=== PATIENT | female | born 1975 | race American Indian/Alaskan Native ===

== ENCOUNTER 2017-03-02 00:29 | Emergency (ER) | payer OTHER ==
[2017-03-02 02:31] LABS: Basophils % (Auto) 0.2 % (0.0-1.8); Eosinophils % (Auto) 0.1 % (0.0-4.3); Hematocrit 35.2 % (30.3-42.9); Hemoglobin 11.7 gm/dl (10.1-14.3); Lymphocytes # (Auto) 0.8 K/mm3 (1.2-5.4); Lymphocytes % (Auto) 13.5 % (13.4-35.0); Mean Corpuscular HGB Conc 33 % (30-34); Mean Corpuscular Hemoglobin 28 pg (28-32); Mean Corpuscular Volume 83 fl (79-97); Monocytes # (Auto) 0.7 K/mm3 (0.0-0.8); Monocytes % (Auto) 11.9 % (0.0-7.3); Red Blood Count 4.24 M/mm3 (3.65-5.03); Red Cell Distribution Width 14.2 % (13.2-15.2)
[2017-03-02 02:33] LABS: Platelet Count 67 K/mm3 (140-440)
[2017-03-02 02:42] LABS: Alanine Aminotransferase 125 units/L (7-56); Albumin 3.2 g/dL (3.9-5); BUN/Creatinine Ratio 18; Blood Urea Nitrogen 9 mg/dL (7-17); Calcium 8.4 mg/dL (8.4-10.2); Hemolysis Index 14
[2017-03-02] MEDS ORDERED: TYLENOL PO ONE ×2 (04:12→19:40)
[2017-03-02] MEDS ORDERED: TYLENOL ONE (04:15)
[2017-03-02 04:47] LABS: Bacteria,Urine 1+ /HPF (Negative); Bilirubin,Urine NEG (Negative); Blood,Urine SM (Negative); Color,Urine Straw (Yellow); Mucus,Urine FEW /HPF; Nitrite,Urine NEG (Negative); Protein,Urine <15 mg/dL mg/dL (Negative); Urobilinogen,Urine < 2.0 mg/dL (<2.0); WBC,Urine < 1.0 /HPF (0.0-6.0)
[2017-03-02 04:49] LABS: HCG Qualitative,Urine Negative (Negative)
--- NOTE | 2017-03-02 06:04 | Cat Scan Report ---
FINAL REPORT EXAM: CT HEAD/BRAIN WO CON HISTORY: AMS x2 HRS PER PT TECHNIQUE: CT imaging acquired through the head without intravenous contrast. Transaxial reformations are provided. PRIORS: None. FINDINGS: The ventricles, cisterns and sulci are within normal limits. No intraparenchymal or extra-axial mass, hemorrhage, or mass effect. Leon and white-matter differentiation is within normal limits. Normal spherical shape of the globes. Paranasal sinuses and mastoid air cells are clear. No skull or facial fracture visualized. IMPRESSION: No acute intracranial abnormality. Consider follow-up MRI as warranted.
[2017-03-02 12:57] LABS: Amphetamine Screen,Urine PRESUMPTIVE NEGATIVE; Benzodiazepines Screen,Urine PRESUMPTIVE NEGATIVE; Cannabinoid Screen,Urine PRESUMPTIVE NEGATIVE; Cocaine Screen,Urine PRESUMPTIVE NEGATIVE; Methadone Screen,Urine PRESUMPTIVE NEGATIVE; Opiate Screen,Urine PRESUMPTIVE NEGATIVE
--- NOTE | 2017-03-02 19:39 | Emergency Department Report ---
ED Neuro Deficit HPI - General Chief Complaint: Neuro Symptoms/Deficit Stated Complaint: FEVER,HEADACHE,CHILL Time Seen by Provider: 03/02/17 17:27 Source: patient Mode of arrival: Ambulatory Limitations: No Limitations - History of Present Illness Initial Comments: 41 YO FEMALE WITH FEVER,CHILLS,FRONTAL HEADACHE THAT BEGAN 5 DAYS AGO. SHE ASLO BEGAN HAVING NECK PAIN 4 DAYS AND DIARRHEA WITH NAUSEA BUT NO VOMITING. THE NECK PAINIS AT THE BASE OF THE SKULL AND RADIATES DOWN HER BOTH SIDES OF CERVICAL SPINE. DURING TRIAGE, SHE C/O PHOTOSENSITIVITY,DIZZINESS, DIARRHEA X4 DAYS, BURNING EPIGSTRIC PAIN SINCE OCTOBER BUT THE PAIN HAS DECREASED SINCE THEN -: Gradual, days(s) (5) History of same: No Place: home Severity: moderate Context: gradual onset - Related Data Home Medications: Previous Rx's Medication Instructions Recorded Last Taken Type Acetaminophen/Codeine 1 tab PO Q6H PRN #30 tab 12/31/13 Unknown Rx [Acetaminophen-Codeine #3 TAB] Cyclobenzaprine [Flexeril 10mg] 10 mg PO TID PRN #30 tablet 12/31/13 Unknown Rx Ibuprofen [Motrin] 600 mg PO Q8H PRN #60 tablet 12/31/13 Unknown Rx Ondansetron [Zofran TAB] 8 mg PO Q8HR PRN #9 tablet 03/03/17 Unknown Rx metroNIDAZOLE [Flagyl] 500 mg PO Q8HR #14 tablet 03/03/17 Unknown Rx oxyCODONE /ACETAMINOPHEN [Percocet 1 tab PO Q6HR PRN #14 tablet 03/03/17 Unknown Rx 5/325] Allergies/Adverse Reactions: Allergies Allergy/AdvReac Type Severity Reaction Status Date / Time No Known Allergies Allergy Verified 03/02/17 04:15 ED Review of Systems ROS: Stated complaint: FEVER,HEADACHE,CHILL Other details as noted in HPI Constitutional: denies: chills, fever Eyes: denies: eye pain, eye discharge, vision change ENT: denies: ear pain, throat pain Respiratory: denies: cough, shortness of breath, wheezing Cardiovascular: denies: chest pain, palpitations Endocrine: no symptoms reported Gastrointestinal: abdominal pain, nausea, diarrhea Genitourinary: denies: urgency, dysuria, discharge Musculoskeletal: denies: back pain, joint swelling, arthralgia Skin: denies: rash, lesions Neurological: headache, other (PHOTOPHOBIA,DIZZINESS). denies: weakness, paresthesias Psychiatric: denies: anxiety, depression Hematological/Lymphatic: denies: easy bleeding, easy bruising ED Past Medical Hx - Past Medical History Previous Medical History?: Yes - Surgical History Past Surgical History?: Yes Additional Surgical History: x 2 - Social History Smoking Status: Never Smoker Substance Use Type: Alcohol - Medications Home Medications: Home Medications Medication Instructions Recorded Confirmed Last Taken Type Acetaminophen/Codeine 1 tab PO Q6H PRN #30 tab 12/31/13 Unknown Rx [Acetaminophen-Codeine #3 TAB] Cyclobenzaprine [Flexeril 10mg] 10 mg PO TID PRN #30 tablet 12/31/13 Unknown Rx Ibuprofen [Motrin] 600 mg PO Q8H PRN #60 tablet 12/31/13 Unknown Rx Ondansetron [Zofran TAB] 8 mg PO Q8HR PRN #9 tablet 03/03/17 Unknown Rx metroNIDAZOLE [Flagyl] 500 mg PO Q8HR #14 tablet 03/03/17 Unknown Rx oxyCODONE /ACETAMINOPHEN [Percocet 1 tab PO Q6HR PRN #14 tablet 03/03/17 Unknown Rx 5/325] ED Neuro Physical Exam - General Limitations: No Limitations General appearance: alert, in no apparent distress Suspected Stroke: No - Head Head exam: Present: atraumatic, normocephalic - Eye Eye exam: Present: normal appearance, EOMI - ENT ENT exam: Present: mucous membranes moist - Neck Neck exam: Present: normal inspection, tenderness (trapezius muscle at occiput and neck), full ROM - Respiratory Respiratory exam: Present: normal lung sounds bilaterally. Absent: respiratory distress, wheezes, rales - Cardiovascular Cardiovascular Exam: Present: regular rate, normal rhythm, normal heart sounds. Absent: systolic murmur, diastolic murmur, rubs, gallop - GI/Abdominal GI/Abdominal exam: Present: soft, normal bowel sounds - Rectal Rectal exam: Present: deferred - Extremities Exam Extremities exam: Present: normal inspection, full ROM - Back Exam Back exam: Present: normal inspection, full ROM - Neurological Exam Neurological exam: Present: alert, oriented X3, CN II-XII intact - Psychiatric Psychiatric exam: Present: normal affect, normal mood - Skin Skin exam: Present: warm, dry, intact, normal color. Absent: rash ED Course Vital Signs 03/02/17 03/02/17 03/02/17 00:40 01:47 04:20 Temperature 99.1 F 99.1 F Pulse Rate 110 H 108 H Respiratory 20 18 18 Rate Blood Pressure 121/75 121/75 Blood Pressure [Left] O2 Sat by Pulse 99 99 Oximetry 03/02/17 03/02/17 03/02/17 05:20 12:58 16:25 Temperature 97.5 F L 98.1 F Pulse Rate 85 85 Respiratory 18 16 20 Rate Blood Pressure 114/72 Blood Pressure 120/80 [Left] O2 Sat by Pulse 100 100 Oximetry 03/02/17 03/02/17 03/02/17 16:30 19:05 21:06 Temperature 98.1 F 98.1 F Pulse Rate 85 90 90 Respiratory 20 15 20 Rate Blood Pressure 120/80 120/56 Blood Pressure 117/65 [Left] O2 Sat by Pulse 100 100 100 Oximetry 03/02/17 03/03/17 03/03/17 23:00 00:00 00:30 Temperature 98.3 F Pulse Rate 107 H 111 H 99 H Respiratory 21 Rate Blood Pressure Blood Pressure 116/64 124/73 130/81 [Left] O2 Sat by Pulse 99 Oximetry - Reevaluation(s) Reevaluation #1: 03/02/17 21:51 JUST SPOKE TO PT ABOUT THE NEED FOR A LUMBAR PUNCTURE BECAUSE WE DO NOT HAVE A CLEAR SOURCE OF HER FEVER. SHE HAS HEADACE,NECK PAIN AND FEVER THUS WE ARE CONCERNED ABOUT MENINGITIS. PT SAID NO TO LUMBAR PUNCTURE BUT I ASKE D HER TO TAKE A FEW MINUTES TO THINK IT OVER. - Lumbar Puncture Consent Obtained: written consent Time Out Performed: Yes Indication for Procedure: headache, change in mental status Patient Position: Sitting Upright/Leaning F Skin Prep: Povidone-Iodine 1% Local Anesthetic Used: Lidocaine 1% Spinal Needle Gauge: 24G Spinal Needle Length: 1.5in Interspace Used: L4-L5 Fluid Initially Obtained: clear Complications: none Patient Tolerated Procedure: well - Lab Data Result diagrams: 03/02/17 02:03 03/02/17 02:03 Lab Results 03/02/17 03/02/17 03/02/17 Range/Units 02:03 02:03 02:03 WBC 5.6 (4.5-11.0) K/mm3 RBC 4.24 (3.65-5.03) M/mm3 Hgb 11.7 (10.1-14.3) gm/dl Hct 35.2 (30.3-42.9) % MCV 83 (79-97) fl MCH 28 (28-32) pg MCHC 33 (30-34) % RDW 14.2 (13.2-15.2) % Plt Count 67 L (140-440) K/mm3 Lymph % (Auto) 13.5 (13.4-35.0) % Barren % (Auto) 11.9 H (0.0-7.3) % Eos % (Auto) 0.1 (0.0-4.3) % Baso % (Auto) 0.2 (0.0-1.8) % Lymph # 0.8 L (1.2-5.4) K/mm3 Barren # 0.7 (0.0-0.8) K/mm3 Eos # 0.0 (0.0-0.4) K/mm3 Baso # 0.0 (0.0-0.1) K/mm3 Seg Neutrophils % 74.3 H (40.0-70.0) % Seg Neutrophils # 4.1 (1.8-7.7) K/mm3 PT (12.2-14.9) Sec. INR (0.87-1.13) APTT (24.2-36.6) Sec. Sodium 131 L (137-145) mmol/L Potassium 3.5 L (3.6-5.0) mmol/L Chloride 95.0 L (98-107) mmol/L Carbon Dioxide 20 L (22-30) mmol/L Anion Gap 20 mmol/L BUN 9 (7-17) mg/dL Creatinine 0.5 L (0.7-1.2) mg/dL Estimated GFR > 60 ml/min BUN/Creatinine Ratio 18 % Glucose 144 H (65-100) mg/dL Calcium 8.4 (8.4-10.2) mg/dL Total Bilirubin 1.40 H (0.1-1.2) mg/dL AST 118 H (5-40) units/L ALT 125 H (7-56) units/L Alkaline Phosphatase 104 (35-129) units/L Total Protein 7.1 (6.3-8.2) g/dL Albumin 3.2 L (3.9-5) g/dL Albumin/Globulin Ratio 0.8 % Lipase (13-60) units/L TSH 0.960 (0.270-4.200) mlU/mL Urine Color (Yellow) Urine Turbidity (Clear) Urine pH (5.0-7.0) Ur Specific [place] (1.003-1.030) Urine Protein (Negative) mg/dL Urine Glucose (UA) (Negative) mg/dL Urine Ketones (Negative) mg/dL Urine Blood (Negative) Urine Nitrite (Negative) Urine Bilirubin (Negative) Urine Urobilinogen (<2.0) mg/dL Ur Leukocyte Esterase (Negative) Urine WBC (Auto) (0.0-6.0) /HPF Urine RBC (Auto) (0.0-6.0) /HPF U Epithel Cells (Auto) (0-13.0) /HPF Urine Bacteria (Auto) (Negative) /HPF Urine Mucus /HPF Urine HCG, Qual (Negative) CSF Appearance CSF Color CSF WBC (1-10) /mm3 CSF RBC (0-0) /mm3 CSF Seg Neutrophils (0-6) % CSF Lymphocytes % (40-80) % CSF Reactive Lymphs % CSF Monocytes % (15-45) % CSF Eosinophils % % CSF Basophils % CSF Pathologist Review CSF Glucose mg/dL CSF Total Protein mg/dL Urine Opiates Screen Urine Methadone Screen Ur Barbiturates Screen Ur Phencyclidine Scrn Ur Amphetamines Screen U Benzodiazepines Scrn Urine Cocaine Screen U Marijuana (THC) Screen Drugs of Abuse Note Plasma/Serum Alcohol (0-0.07) gm% 03/02/17 03/02/17 03/02/17 Range/Units 02:03 02:15 04:28 WBC (4.5-11.0) K/mm3 RBC (3.65-5.03) M/mm3 Hgb (10.1-14.3) gm/dl Hct (30.3-42.9) % MCV (79-97) fl MCH (28-32) pg MCHC (30-34) % RDW (13.2-15.2) % Plt Count (140-440) K/mm3 Lymph % (Auto) (13.4-35.0) % Barren % (Auto) (0.0-7.3) % Eos % (Auto) (0.0-4.3) % Baso % (Auto) (0.0-1.8) % Lymph # (1.2-5.4) K/mm3 Barren # (0.0-0.8) K/mm3 Eos # (0.0-0.4) K/mm3 Baso # (0.0-0.1) K/mm3 Seg Neutrophils % (40.0-70.0) % Seg Neutrophils # (1.8-7.7) K/mm3 PT (12.2-14.9) Sec. INR (0.87-1.13) APTT (24.2-36.6) Sec. Sodium (137-145) mmol/L Potassium (3.6-5.0) mmol/L Chloride (98-107) mmol/L Carbon Dioxide (22-30) mmol/L Anion Gap mmol/L BUN (7-17) mg/dL Creatinine (0.7-1.2) mg/dL Estimated GFR ml/min BUN/Creatinine Ratio % Glucose (65-100) mg/dL Calcium (8.4-10.2) mg/dL Total Bilirubin (0.1-1.2) mg/dL AST (5-40) units/L ALT (7-56) units/L Alkaline Phosphatase (35-129) units/L Total Protein (6.3-8.2) g/dL Albumin (3.9-5) g/dL Albumin/Globulin Ratio % Lipase 13 (13-60) units/L TSH (0.270-4.200) mlU/mL Urine Color Straw (Yellow) Urine Turbidity Clear (Clear) Urine pH 6.0 (5.0-7.0) Ur Specific [place] 1.003 (1.003-1.030) Urine Protein <15 mg/dl (Negative) mg/dL Urine Glucose (UA) Neg (Negative) mg/dL Urine Ketones Neg (Negative) mg/dL Urine Blood Sm (Negative) Urine Nitrite Neg (Negative) Urine Bilirubin Neg (Negative) Urine Urobilinogen < 2.0 (<2.0) mg/dL Ur Leukocyte Esterase Neg (Negative) Urine WBC (Auto) < 1.0 (0.0-6.0) /HPF Urine RBC (Auto) 1.0 (0.0-6.0) /HPF U Epithel Cells (Auto) 1.0 (0-13.0) /HPF Urine Bacteria (Auto) 1+ (Negative) /HPF Urine Mucus Few /HPF Urine HCG, Qual Negative (Negative) CSF Appearance CSF Color CSF WBC (1-10) /mm3 CSF RBC (0-0) /mm3 CSF Seg Neutrophils (0-6) % CSF Lymphocytes % (40-80) % CSF Reactive Lymphs % CSF Monocytes % (15-45) % CSF Eosinophils % % CSF Basophils % CSF Pathologist Review CSF Glucose mg/dL CSF Total Protein mg/dL Urine Opiates Screen Urine Methadone Screen Ur Barbiturates Screen Ur Phencyclidine Scrn Ur Amphetamines Screen U Benzodiazepines Scrn Urine Cocaine Screen U Marijuana (THC) Screen Drugs of Abuse Note Plasma/Serum Alcohol < 0.01 (0-0.07) gm% 03/02/17 03/02/17 03/03/17 Range/Units 04:28 22:17 00:51 WBC (4.5-11.0) K/mm3 RBC (3.65-5.03) M/mm3 Hgb (10.1-14.3) gm/dl Hct (30.3-42.9) % MCV (79-97) fl MCH (28-32) pg MCHC (30-34) % RDW (13.2-15.2) % Plt Count (140-440) K/mm3 Lymph % (Auto) (13.4-35.0) % Barren % (Auto) (0.0-7.3) % Eos % (Auto) (0.0-4.3) % Baso % (Auto) (0.0-1.8) % Lymph # (1.2-5.4) K/mm3 Barren # (0.0-0.8) K/mm3 Eos # (0.0-0.4) K/mm3 Baso # (0.0-0.1) K/mm3 Seg Neutrophils % (40.0-70.0) % Seg Neutrophils # (1.8-7.7) K/mm3 PT 14.8 (12.2-14.9) Sec. INR 1.10 (0.87-1.13) APTT 45.6 H (24.2-36.6) Sec. Sodium (137-145) mmol/L Potassium (3.6-5.0) mmol/L Chloride (98-107) mmol/L Carbon Dioxide (22-30) mmol/L Anion Gap mmol/L BUN (7-17) mg/dL Creatinine (0.7-1.2) mg/dL Estimated GFR ml/min BUN/Creatinine Ratio % Glucose (65-100) mg/dL Calcium (8.4-10.2) mg/dL Total Bilirubin (0.1-1.2) mg/dL AST (5-40) units/L ALT (7-56) units/L Alkaline Phosphatase (35-129) units/L Total Protein (6.3-8.2) g/dL Albumin (3.9-5) g/dL Albumin/Globulin Ratio % Lipase (13-60) units/L TSH (0.270-4.200) mlU/mL Urine Color (Yellow) Urine Turbidity (Clear) Urine pH (5.0-7.0) Ur Specific [place] (1.003-1.030) Urine Protein (Negative) mg/dL Urine Glucose (UA) (Negative) mg/dL Urine Ketones (Negative) mg/dL Urine Blood (Negative) Urine Nitrite (Negative) Urine Bilirubin (Negative) Urine Urobilinogen (<2.0) mg/dL Ur Leukocyte Esterase (Negative) Urine WBC (Auto) (0.0-6.0) /HPF Urine RBC (Auto) (0.0-6.0) /HPF U Epithel Cells (Auto) (0-13.0) /HPF Urine Bacteria (Auto) (Negative) /HPF Urine Mucus /HPF Urine HCG, Qual (Negative) CSF Appearance Clear CSF Color Colorless CSF WBC 4 (1-10) /mm3 CSF RBC 9 (0-0) /mm3 CSF Seg Neutrophils 21.0 (0-6) % CSF Lymphocytes % 61.0 (40-80) % CSF Reactive Lymphs 0 % CSF Monocytes % 18.0 (15-45) % CSF Eosinophils % 0 % CSF Basophils 0 % CSF Pathologist Review C CSF Glucose 67 mg/dL CSF Total Protein 16 mg/dL Urine Opiates Screen Presumptive negative Urine Methadone Screen Presumptive negative Ur Barbiturates Screen Presumptive negative Ur Phencyclidine Scrn Presumptive negative Ur Amphetamines Screen Presumptive negative U Benzodiazepines Scrn Presumptive negative Urine Cocaine Screen Presumptive negative U Marijuana (THC) Screen Presumptive negative Drugs of Abuse Note Disclamer Plasma/Serum Alcohol (0-0.07) gm% - EKG Data -: EKG Interpreted by Me EKG shows normal: sinus rhythm, axis, intervals, ST-T waves Rate: normal (90) Interpretation: other (Q INFERIOR LEADS) - Radiology Data Radiology results: report reviewed (CT HEAD:NEGATIVE) Critical care attestation.: If time is entered above; I have spent that time in minutes in the direct care of this critically ill patient, excluding procedure time. ED Disposition Clinical Impression: Neck ache, Abnormal LFTs Fever Qualifiers: Fever type: unspecified Qualified Code(s): R50.9 - Fever, unspecified Nausea & vomiting Qualifiers: Vomiting type: unspecified Vomiting Intractability: unspecified Qualified Code( s): R11.2 - Nausea with vomiting, unspecified Diarrhea Qualifiers: Diarrhea type: infectious Qualified Code(s): A09 - Infectious gastroenteritis and colitis, unspecified Disposition: DC- TO HOME OR SELFCARE Is pt being admited?: No Does the pt Need Aspirin: No Condition: Stable Instructions: Acute Headache (ED), Acute Nausea and Vomiting (ED), Acute Diarrhea (ED) Additional Instructions: PLESE FOLLOW UP WITHYOUR DOCTOR IN TWO DAYS. RETURN TO THE ED IF YOUR FEVER, HEADACHE INCREASE OR FOR ANY REASONOR CONCERNS Prescriptions: metroNIDAZOLE [Flagyl] 500 mg PO Q8HR #14 tablet Ondansetron [Zofran TAB] 8 mg PO Q8HR PRN #9 tablet PRN Reason: Nausea oxyCODONE /ACETAMINOPHEN [Percocet 5/325] 1 tab PO Q6HR PRN #14 tablet PRN Reason: Pain Referrals: SASHA BAKER MD [Primary Care Provider] - 3-5 Days Time of Disposition: 02:05
[2017-03-02] MEDS ORDERED: TORADOL IV ONE (19:40)
[2017-03-02] MEDS ORDERED: NACL 0.9% 1000 ML 1,000 ML IV ONE (22:05)
[2017-03-02] MEDS ORDERED: REGLAN IV ONE (22:05)
[2017-03-02 23:03] LABS: INR 1.1 (0.87-1.13)
[2017-03-02 23:04] LABS: Partial Thromboplastin Time 45.6 Sec. (24.2-36.6)
[2017-03-03] MEDS ORDERED: SUBLIMAZE ONE (00:15)
[2017-03-03 01:44] LABS: Appearance,CSF Clear; Red Blood Cell,CSF 9 /mm3 (0-0); White Blood Cell,CSF 4 /mm3 (1-10)
[2017-03-03 01:54] LABS: Glucose,CSF 67 mg/dL
[2017-03-03 02:32] LABS: Basophils CSF 0 %; Total Cells Counted 100 /mm3
[2017-03-03] MEDS ORDERED: SUBLIMAZE IV ONE (02:36)
[2017-03-03 05:12] VITALS: BP 101/44
== END 2017-03-03 03:24 | disposition home or self-care (01) ==
LOC: ED 00:29
DX: R51 Headache (principal); M54.2 Cervicalgia; R11.2 Nausea with vomiting, unspecified; R19.7 Diarrhea, unspecified; R50.9 Fever, unspecified
CPT/HCPCS: 36415; 62272; 70450; 80053; 80307; 81001; 81025; 82947; 83690; 84160; 84443; 85025; 85610; 85730; 86403; 86592; 87102; 87116; 87220; 87400; 87430; 89051; 93005; 93010; 96361; 96374; 96375; 99285; G0480; J1885; J2765; J3010; J7030; 80320

== ENCOUNTER 2019-07-28 00:16 | Emergency (ER) | payer OTHER ==
[2019-07-28 00:43] VITALS: BP 105/65
[2019-07-28] MEDS ORDERED: HYDROcodone/ACETAMINOPHEN 5-325 MG TAB PO STA (01:14)
--- NOTE | 2019-07-28 01:22 | XRay Report ---
EXAMINATION: Right ankle radiograph, 3 views CLINICAL INFORMATION: Right ankle pain. No history of trauma is given COMPARISON: None. FINDINGS: There is generalized soft tissue swelling of the right ankle without definitive evidence of acute fracture or dislocation. Signer Name: Belkys Peña MD Signed: 07/28/2019 1:18 AM Workstation Name: [id number]
--- NOTE | 2019-07-28 01:25 | XRay Report ---
EXAMINATION: Right knee radiograph, 3 views CLINICAL INFORMATION: Right knee pain after trauma. Fall. COMPARISON: None. FINDINGS: There is an oblique minimally displaced fracture of the fibular head. The proximal tibia sh ows no definitive evidence of fracture. Minimal degenerative spurring of the tibial plateau is incide ntally noted. IMPRESSION: Oblique minimally displaced fibular head fracture. Signer Name: Belkys Peña MD Signed: 07/28/2019 1:20 AM Workstation Name: [id number]
--- NOTE | 2019-07-28 01:33 | Emergency Department Report ---
ED Lower Extremity HPI - General Chief Complaint: Extremity Injury, Lower Stated Complaint: RT ANKLE PAIN/FELL OFF PORCH Time Seen by Provider: 07/28/19 01:14 Source: patient Mode of arrival: Ambulatory Limitations: No Limitations - History of Present Illness Complaint: leg injury, ankle injury -: Sudden, hour(s) Injury: Leg: Right, Ankle: Right Type of Injury: unknown (Was washing walking on the porch lost her balance and had fallen off causing her right leg to land and twist alkaline [place] followed by throbbing dull pain to the upper leg and ankle region) Place: home Severity: mild Improves With: nothing Context: fall Associated Symptoms: swelling, able to partially bear weight - Related Data Previous Rx's Medication Instructions Recorded Last Taken Type Acetaminophen/Codeine 1 tab PO Q6H PRN #30 tab 12/31/13 Unknown Rx [Acetaminophen-Codeine #3 TAB] Cyclobenzaprine [Flexeril 10mg] 10 mg PO TID PRN #30 tablet 12/31/13 Unknown Rx Ibuprofen [Motrin] 600 mg PO Q8H PRN #60 tablet 12/31/13 Unknown Rx Ondansetron (Nf) [Zofran TAB] 8 mg PO Q8HR PRN #9 tablet 03/03/17 Unknown Rx metroNIDAZOLE [Flagyl] 500 mg PO Q8HR #14 tablet 03/03/17 Unknown Rx oxyCODONE /ACETAMINOPHEN [Percocet 1 tab PO Q6HR PRN #14 tablet 03/03/17 Unknown Rx 5/325] Acetaminophen/Codeine [Tylenol 1 tab PO Q6H PRN #14 tab 07/28/19 Unknown Rx /Codeine # 3 tab] Allergies Allergy/AdvReac Type Severity Reaction Status Date / Time Penicillins Allergy Hives Verified 07/28/19 00:41 ED Review of Systems ROS: Stated complaint: RT ANKLE PAIN/FELL OFF PORCH Other details as noted in HPI Comment: All other systems reviewed and negative ED Past Medical Hx - Past Medical History Previous Medical History?: No - Surgical History Past Surgical History?: Yes Additional Surgical History: x 2 - Social History Smoking Status: Never Smoker Substance Use Type: None - Medications Home Medications: Home Medications Medication Instructions Recorded Confirmed Last Taken Type Acetaminophen/Codeine 1 tab PO Q6H PRN #30 tab 12/31/13 Unknown Rx [Acetaminophen-Codeine #3 TAB] Cyclobenzaprine [Flexeril 10mg] 10 mg PO TID PRN #30 tablet 12/31/13 Unknown Rx Ibuprofen [Motrin] 600 mg PO Q8H PRN #60 tablet 12/31/13 Unknown Rx Ondansetron (Nf) [Zofran TAB] 8 mg PO Q8HR PRN #9 tablet 03/03/17 Unknown Rx metroNIDAZOLE [Flagyl] 500 mg PO Q8HR #14 tablet 03/03/17 Unknown Rx oxyCODONE /ACETAMINOPHEN [Percocet 1 tab PO Q6HR PRN #14 tablet 03/03/17 Unknown Rx 5/325] Acetaminophen/Codeine [Tylenol 1 tab PO Q6H PRN #14 tab 07/28/19 Unknown Rx /Codeine # 3 tab] ED Physical Exam - General Limitations: No Limitations General appearance: alert, in no apparent distress - Head Head exam: Present: atraumatic, normocephalic - Eye Eye exam: Present: normal appearance, PERRL, EOMI Pupils: Present: normal accommodation - ENT ENT exam: Present: mucous membranes moist - Neck Neck exam: Present: normal inspection, full ROM - Respiratory Respiratory exam: Present: normal lung sounds bilaterally. Absent: respiratory distress, wheezes, rales, rhonchi, accessory muscle use, decreased breath sounds - Cardiovascular Cardiovascular Exam: Present: regular rate, normal rhythm. Absent: systolic murmur, diastolic murmur, rubs, gallop - GI/Abdominal GI/Abdominal exam: Present: soft, normal bowel sounds - Extremities Exam Extremities exam: Present: normal inspection, tenderness (To the proximal fibular region. No swelling or ecchymosis is noted.), normal capillary refill, joint swelling - Expanded Lower Extremity Exam Right Knee exam: Present: tenderness. Absent: effusion, pain w/ pronation/supination, posterior draw sign Lower Leg exam: Present: tenderness. Absent: swelling, abrasion, ecchymosis, deformity, crepidus, palpable cord, Mariana's sign Ankle exam: Present: full ROM, tenderness, swelling. Absent: dislocation, anterior draw sign Neuro vascular tendon exam: Present: no vascular compromise - Back Exam Back exam: Present: normal inspection - Neurological Exam Neurological exam: Present: alert, oriented X3 - Psychiatric Psychiatric exam: Present: normal affect, normal mood - Skin Skin exam: Present: warm, dry, intact, normal color. Absent: rash ED Course Vital Signs 07/28/19 00:40 Temperature 98.1 F Pulse Rate 86 Respiratory 18 Rate Blood Pressure 105/65 O2 Sat by Pulse 100 Oximetry - Procedure Description Procedures done: Patient was given crutches after education and also placed in an a posterior leg splint - Orthopedic Splinting/Casting Injury #1 Side: right Lower Extremity Injury Location: lower leg Lower Extremity Immobilizer: posterior splint Other Orthopedic Equipment: crutches ED Lower Extremity MDM - Radiology Data Radiology results: report reviewed [facility] [address] [place] [address] XRay Report Signed Patient: ARABELLA WRIGHT MR#: [id number] : 1975 Acct:[id number] Age/Sex: 44 / F ADM Date: 07/28/19 Loc: ED Attending Dr: Ordering Physician: ED MD ZENAIDA Date of Service: 07/28/19 Procedure(s): XR ankle 3+V RT Accession Number(s): [id number] cc: ED MD ZENAIDA Fluoro Time In Minutes: EXAMINATION: Right ankle radiograph, 3 views CLINICAL INFORMATION: Right ankle pain. No history of trauma is given COMPARISON: None. FINDINGS: There is generalized soft tissue swelling of the right ankle without definitive evidence of acute fracture or dislocation. Signer Name: Belkys Peña MD Signed: 07/28/2019 1:18 AM Workstation Name: [id number] Transcribed By: EB Dictated By: Belkys Peña MD Electronically Authenticated By: Belkys Peña MD Signed Date/Time: 07/28/19117 DD/ 6 TD/TT: - Medical Decision Making X-ray shows fracture to the fibular head oblique avulsion like plans splint crutches follow-up with orthopedic neurovascularly intact no evidence of any compartment syndrome Critical care attestation.: If time is entered above; I have spent that time in minutes in the direct care of this critically ill patient, excluding procedure time. ED Disposition Clinical Impression: Closed fracture fibula, head, Ankle sprain, Fall Disposition: - TO HOME OR SELFCARE Is pt being admited?: No Does the pt Need Aspirin: No Condition: Stable Instructions: Leg Fracture (ED), Fall Prevention (ED) Prescriptions: Acetaminophen/Codeine [Tylenol /Codeine # 3 tab] 1 tab PO Q6H PRN #14 tab PRN Reason: leg pain Referrals: PRIMARY CARE, [Primary Care Provider] - 3-5 Days DANIELA BRITT MD [Staff Physician] - 3-5 Days
== END 2019-07-28 02:48 | disposition home or self-care (01) ==
LOC: ED 00:16
DX: S82.491A Other fracture of shaft of right fibula, initial encounter for closed fracture (principal); Z98.890 Other specified postprocedural states; Z79.1 Long term (current) use of non-steroidal anti-inflammatories (NSAID); Z79.899 Other long term (current) drug therapy; Z88.0 Allergy status to penicillin; X50.1XXA Overexertion from prolonged static or awkward postures, initial encounter; Y93.89 Activity, other specified; Y92.009 Unspecified place in unspecified non-institutional (private) residence as the place of occurrence of the external cause; Y99.8 Other external cause status